=== PATIENT | male | born 1940 | race Caucasian/White ===

== ENCOUNTER 2021-07-01 07:21 | Outpatient (CLI) | payer MEDICARE ==
[2021-07-01 08:05] LABS: Hemoglobin 11.8 g/dL (13.5-17.5); Mean Corpuscular HGB CONC 32.6 g/dL (32.0-36.0); Mean Corpuscular Hemoglobin 33.9 pg (27.0-33.0); Mean Platelet Volume 10.9 fl (7.4-10.4); Platelet Count 124 10x3/uL (150-450); RBC Distribution Width 15.5 % (11.5-14.5); Red Blood Cell (RBC) Count 3.48 10x6/uL (4.32-5.72); White Blood Cell (WBC) Count 4.5 10x3/uL (3.5-10.5)
[2021-07-01 08:23] LABS: ALT (SGPT) 25 U/L (8-55); AST (SGOT) 25 U/L (5-34); Albumin 3.9 g/dL (3.4-4.8); Alkaline Phosphatase 238 U/L (40-110); Anion Gap 14 mmol/L (10-20); BUN (Urea Nitrogen) 22 mg/dL (8.4-25.7); Calc. Creatinine Clearance 0 mL/min (70-130); Carbon Dioxide 26 mmol/L (23-31); Chloride 107 mmol/L (98-107); Globulin 2.8 g/dL (2.4-3.5); Glucose 93 mg/dL (83-110); Magnesium 2.2 mg/dL (1.6-2.6); Potassium 4.6 mmol/L (3.5-5.1); Protein, Total 6.7 g/dL (5.8-8.1); Sodium 142 mmol/L (136-145)
[2021-07-01 08:24] LABS: INR-International Normal Ratio 1.1; PTT 30.3 sec (22.0-33.0); Prothrombin Time 11.8 sec (9.5-12.1)
[2021-07-01 16:44] LABS: SARS-CoV-2 PCR by NAA Not Detected (NotDetected)
== END 2021-07-01 07:22 | disposition home or self-care (01) ==
LOC: CSHLAB 07:21
PROVIDERS: ATTEND Specialist
DX: Z01.812 Encounter for preprocedural laboratory examination (principal); Z20.822 Contact with and (suspected) exposure to COVID-19; I48.91 Unspecified atrial fibrillation
CPT/HCPCS: 80053; 83735; 85027; 85610; 85730; U0003; U0005

== ENCOUNTER → 2021-07-04 | Day surgery (SDC) | payer MEDICARE ==
[~2021-07-04] MED LIST: PROPOFOL 20 ML ONE
== END ==
LOC: CSHSDC 09:37
PROVIDERS: ATTEND Specialist
DX: I48.19 Other persistent atrial fibrillation (principal); I10 Essential (primary) hypertension; E78.2 Mixed hyperlipidemia; I25.118 Atherosclerotic heart disease of native coronary artery with other forms of angina pectoris; I65.23 Occlusion and stenosis of bilateral carotid arteries; Z79.82 Long term (current) use of aspirin; Z79.01 Long term (current) use of anticoagulants; Z95.1 Presence of aortocoronary bypass graft; Z20.822 Contact with and (suspected) exposure to COVID-19
CPT/HCPCS: 92960; 93005; 93010; J2704

== ENCOUNTER 2021-07-25 09:09 | Outpatient (CLI) | payer MEDICARE | END 2021-07-25 09:10 | disposition home or self-care (01) | LOC: CSHLAB 09:09 | PROVIDERS: ATTEND Specialist | DX: Z20.822 Contact with and (suspected) exposure to COVID-19 (principal) | CPT/HCPCS: U0003; U0005 ==

== ENCOUNTER 2021-07-26 14:04 | Observation (INO) | payer MEDICARE ==
[2021-07-26] MEDS ORDERED: Senokot S 8.6-50 MG TAB PO PRN (15:22)
[2021-07-26] MEDS ORDERED: Ondansetron PF 4 MG/2 ML Vial IVP PRN (15:22)
[2021-07-26] MEDS ORDERED: HYDROcodone/Acetaminophen 7.5/325 mg Tablet PO PRN (15:22)
[2021-07-26] MEDS ORDERED: Ondansetron ODT 4 MG TAB PO PRN (15:22)
[2021-07-26] MEDS ORDERED: HYDROcodone/Acetaminophen 5/325 mg Tablet PO PRN (15:22)
[2021-07-26] MEDS ORDERED: Guaifenesin DM 100-10/5 ML UDCUP PO PRN (15:22)
[2021-07-26 17:09] VITALS: BMI 22.6
[2021-07-26] MEDS: Acetaminophen 325 MG TAB PO PRN (17:53)
[2021-07-26] MEDS ORDERED: Atorvastatin Calcium 20 MG TAB PO SCH (21:00)
[2021-07-26] MEDS ORDERED: Famotidine 20 MG TAB PO SCH (21:00)
[2021-07-26] MEDS ORDERED: Flecainide 50 MG TAB PO SCH (21:30)
[2021-07-27 04:53] LABS: Hemoglobin 10.3 g/dL (13.5-17.5); Mean Corpuscular HGB CONC 34.8 g/dL (32.0-36.0); Mean Corpuscular Hemoglobin 33.7 pg (27.0-33.0); Mean Corpuscular Volume 96.7 fl (81.2-95.1); Mean Platelet Volume 11.3 fl (7.4-10.4); Platelet Count 77 10x3/uL (150-450); RBC Distribution Width 15.2 % (11.5-14.5); Red Blood Cell (RBC) Count 3.06 10x6/uL (4.32-5.72); White Blood Cell (WBC) Count 3.2 10x3/uL (3.5-10.5)
[2021-07-27 05:01] LABS: Anion Gap 15 mmol/L (10-20); BUN (Urea Nitrogen) 20 mg/dL (8.4-25.7); Calc. Creatinine Clearance 41 mL/min (70-130); Calcium 8.5 mg/dL (7.8-10.44); Carbon Dioxide 22 mmol/L (23-31); Chloride 102 mmol/L (98-107); Glucose 97 mg/dL (83-110); Potassium 4.2 mmol/L (3.5-5.1); Sodium 135 mmol/L (136-145)
[2021-07-27 05:06] LABS: MDiff Complete? YES
[2021-07-27 05:22] LABS: Band 1 % (5-11); Lymphocytes 17 % (21-51); Monocytes 11 % (0-10); Neutrophil 70 % (42-75)
[2021-07-27 05:23] LABS: Platelet Morphology Comment Appears Decreased; RBC Morphology Normal
[2021-07-27] MEDS ORDERED: Levothyroxine Sodium 75 MCG TAB PO SCH (06:00)
[2021-07-27] MEDS ORDERED: Flecainide 50 MG TAB PO SCH (09:00)
[2021-07-27] MEDS ORDERED: Losartan Potassium 50 MG TAB PO SCH (09:00)
[2021-07-27] MEDS: Acetaminophen 325 MG TAB PO PRN ×2 (09:08)
[2021-07-27 11:55] VITALS: BP 118/59; TEMP 99.5
== END 2021-07-27 12:01 | disposition home or self-care (01) ==
LOC: CSHTELE 14:04
PROVIDERS: ADMIT Family Medicine; ATTEND Family Medicine
DX: R55 Syncope and collapse (principal); I25.10 Atherosclerotic heart disease of native coronary artery without angina pectoris; K92.1 Melena; E78.5 Hyperlipidemia, unspecified; I11.9 Hypertensive heart disease without heart failure; E03.9 Hypothyroidism, unspecified; I48.19 Other persistent atrial fibrillation; Z79.01 Long term (current) use of anticoagulants; Z79.890 Hormone replacement therapy; Z79.899 Other long term (current) drug therapy; Z95.1 Presence of aortocoronary bypass graft; Z95.5 Presence of coronary angioplasty implant and graft; W19.XXXA Unspecified fall, initial encounter
CPT/HCPCS: 36415; 80048; 85025; G0378

== ENCOUNTER 2021-07-29 09:05 | Day surgery (SDC) | payer MEDICARE ==
[2021-07-29] MEDS ORDERED: PROPOFOL 200 MG/20 ML VIAL ONE (12:00)
[2021-07-29 16:01] VITALS: TEMP 98.4
== END 2021-07-29 14:17 | disposition home or self-care (01) ==
LOC: CSHSDC 09:05
PROVIDERS: ATTEND Specialist
PROC: 5A2204Z Restoration of Cardiac Rhythm, Single (ICD-10-PCS; principal; 2021-07-29)
DX: I48.19 Other persistent atrial fibrillation (principal); I25.118 Atherosclerotic heart disease of native coronary artery with other forms of angina pectoris; I65.23 Occlusion and stenosis of bilateral carotid arteries; E78.2 Mixed hyperlipidemia; I10 Essential (primary) hypertension; Z79.01 Long term (current) use of anticoagulants; Z79.890 Hormone replacement therapy; Z79.899 Other long term (current) drug therapy; Z95.1 Presence of aortocoronary bypass graft
CPT/HCPCS: 92960; 93005; 93010; J2704

== ENCOUNTER 2022-03-09 10:06 | Outpatient (CLI) | payer MEDICARE | END 2022-03-09 10:07 | disposition home or self-care (01) | LOC: CSHCP 10:06 | PROVIDERS: ATTEND Internal Medicine Pulmonary Disease | DX: J84.9 Interstitial pulmonary disease, unspecified (principal); R06.02 Shortness of breath | CPT/HCPCS: 94060; 94726; 94729; 94760 ==

== ENCOUNTER 2023-04-05 11:48 | Outpatient (CLI) | payer MEDICARE | END 2023-04-05 11:49 | disposition home or self-care (01) | LOC: CSHCT 11:48 | PROVIDERS: ATTEND Family Medicine | DX: R10.9 Unspecified abdominal pain (principal); K74.60 Unspecified cirrhosis of liver; K76.6 Portal hypertension; R18.8 Other ascites; K63.9 Disease of intestine, unspecified; J98.11 Atelectasis; J90 Pleural effusion, not elsewhere classified; J98.4 Other disorders of lung | CPT/HCPCS: 74177 ==

== ENCOUNTER 2023-04-12 15:22 | Observation (INO) | payer MEDICARE ==
[2023-04-12 15:48] VITALS: BMI 21.5
[2023-04-12] MEDS ORDERED: Ondansetron PF 4 MG/2 ML Vial IVP PRN (16:28)
[2023-04-12] MEDS ORDERED: HYDROcodone/Acetaminophen 5/325 mg Tablet PO PRN (16:28)
[2023-04-12] MEDS ORDERED: Guaifenesin DM 100-10/5 ML UDCUP PO PRN (16:28)
[2023-04-12] MEDS ORDERED: Senokot S 8.6-50 MG TAB PO PRN (16:28)
[2023-04-12] MEDS ORDERED: Nitroglycerin 0.4 MG TAB (25 Tab Bottle) SL PRN (18:53)
[2023-04-12 20:11] LABS: Troponin I 0.078 ng/mL (< 0.028)
[2023-04-12] MEDS: Flecainide 50 MG TAB PO SCH (20:25)
[2023-04-12 22:36] LABS: Troponin I 0.079 ng/mL (< 0.028)
[2023-04-13 03:47] LABS: #Monocytes 0.3 10x3/uL (0.0-1.1); #Neutrophils 1.7 10x3/uL (1.5-8.4); %Basophils 0.7 % (0.0-2.0); %Eosinophils 1.4 % (0.0-6.0); %Lymphocytes 28.8 % (18.0-47.0); %Monocytes 9.8 % (0.0-10.0); %Neutrophils 58.9 % (40.0-75.0); Hematocrit 25.2 % (38.8-50.0); Mean Corpuscular HGB CONC 31.7 g/dL (32.0-36.0); Mean Corpuscular Hemoglobin 29.6 pg (27.0-33.0); Mean Corpuscular Volume 93.3 fl (81.2-95.1); Mean Platelet Volume 10.5 fl (7.4-10.4); Platelet Count 147 10x3/uL (150-450); RBC Distribution Width 17.2 % (11.5-14.5); White Blood Cell (WBC) Count 2.9 10x3/uL (3.5-10.5)
[2023-04-13 04:18] LABS: ALT (SGPT) 9 U/L (8-55); AST (SGOT) 17 U/L (5-34); Albumin 2.8 g/dL (3.4-4.8); Alkaline Phosphatase 96 U/L (40-110); Anion Gap 10 mmol/L (10-20); BUN (Urea Nitrogen) 14 mg/dL (8.4-25.7); Bilirubin, Total 0.4 mg/dL (0.2-1.2); Calc. Creatinine Clearance 40 mL/min (70-130); Cardiac Risk 3.5 (Less than 4.5); Chloride 108 mmol/L (98-107); Cholesterol 126 mg/dl (< 200 Desired); Estimated GFR 52; Globulin 2.6 g/dL (2.4-3.5); Glucose 91 mg/dL (83-110); HDL Cholesterol 36 mg/dL (>60 Neg Risk); LDL Cholesterol, Calculated 80 mg/dL; Potassium 3.9 mmol/L (3.5-5.1); Protein, Total 5.4 g/dL (5.8-8.1); Sodium 139 mmol/L (136-145); Triglycerides 49 mg/dL (Less than 150)
[2023-04-13 04:27] LABS: Carbon Dioxide 25 mmol/L (23-31)
[2023-04-13] MEDS: Levothyroxine Sodium 75 MCG TAB PO SCH (06:16)
[2023-04-13] MEDS: Empagliflozin 25 MG TAB PO SCH (10:19)
[2023-04-13] MEDS ORDERED: Lidocaine 1% PF 5 ML VIAL ONE (11:06)
[2023-04-13] MEDS ORDERED: Sodium Bicarbonate 2.5 MEQ/5 ML SDV ONE (11:07)
[2023-04-13 14:06] LABS: HBCM Index 0.06 S/CO (0-0.79); Hep A IgM AB Non-Reactive (NonReactive); Hep A IgM S/CO 0.28 S/CO (0-0.79); Hep C IgG Ab Non-Reactive S/CO (NonReactive); Hepatitis B Core IgM Abs Non-Reactive S/CO (NonReactive)
[2023-04-13 14:12] LABS: BF Color Yellow; Body Fluid Source Ascites Body Fluid; Clarity Clear (Clear); Tube # EDTA
[2023-04-13 14:18] LABS: BF Segmented Neutrophils 6 %; Cell Count Non Hematic 55 %; Lymphocytes 39 %
[2023-04-13 14:39] VITALS: BP 138/71; TEMP 97.5
[2023-04-13 15:27] LABS: HBSAg Index 0.26 S/CO (0-0.99); Hep B Surf Ag Non-Reactive S/CO (NonReactive)
[2023-04-13 16:59] LABS: Fluid, Protein 2.1 g/dL (Not Available)
== END 2023-04-13 17:45 | disposition home or self-care (01) ==
LOC: CSHTELE 15:22
PROVIDERS: ADMIT Hospitalist; ATTEND Hospitalist
PROC: 0W9G3ZZ Drainage of Peritoneal Cavity, Percutaneous Approach (ICD-10-PCS; principal; 2023-04-12)
DX: K74.60 Unspecified cirrhosis of liver (principal); R18.8 Other ascites; I25.10 Atherosclerotic heart disease of native coronary artery without angina pectoris; I13.0 Hypertensive heart and chronic kidney disease with heart failure and stage 1 through stage 4 chronic kidney disease, or unspecified chronic kidney disease; I50.32 Chronic diastolic (congestive) heart failure; N18.30 Chronic kidney disease, stage 3 unspecified; I48.0 Paroxysmal atrial fibrillation; D63.8 Anemia in other chronic diseases classified elsewhere; E79.89 Other specified disorders of purine and pyrimidine metabolism; E78.5 Hyperlipidemia, unspecified; N40.0 Benign prostatic hyperplasia without lower urinary tract symptoms; K21.9 Gastro-esophageal reflux disease without esophagitis; K57.90 Diverticulosis of intestine, part unspecified, without perforation or abscess without bleeding; E78.2 Mixed hyperlipidemia; J84.10 Pulmonary fibrosis, unspecified; I65.23 Occlusion and stenosis of bilateral carotid arteries; G47.30 Sleep apnea, unspecified; E03.9 Hypothyroidism, unspecified; Z79.890 Hormone replacement therapy; Z79.899 Other long term (current) drug therapy; Z79.01 Long term (current) use of anticoagulants; R10.12 Left upper quadrant pain; R79.89 Other specified abnormal findings of blood chemistry; I10 Essential (primary) hypertension
CPT/HCPCS: 49083; 74177; 80053 ×2; 80061; 80074; 81001; 82945; 83690; 84157; 84484 ×2; 85025 ×2; 85379; 85610; 85730; 87070; 87205; 89051; 93005 ×2; 96374; 99285; G0378 ×2; 36415; 82274; 88112; 88305; 93010; J1650; J2270

== ENCOUNTER 2023-08-04 08:08 | Day surgery (SDC) | payer MEDICARE ==
[2023-08-04 08:48] VITALS: BP 107/55; TEMP 97.4
[2023-08-04] MEDS ORDERED: Sodium Bicarbonate 2.5 MEQ/5 ML SDV ONE (09:00)
[2023-08-04] MEDS ORDERED: Lidocaine 1% (PF) 30 ML VIAL ONE (09:00)
[2023-08-04 09:02] LABS: #Basophils 0.01 10x3/uL (0.0-0.2); #Eosinphils 0.04 10x3/uL (0.0-0.5); #Monocytes 0.17 10x3/uL (0.0-1.1); #Neutrophils 1.78 10x3/uL (1.5-8.4); %Basophils 0.4 % (0.0-2.0); %Eosinophils 1.5 % (0.0-6.0); %Lymphocytes 24.2 % (18.0-47.0); %Monocytes 6.4 % (0.0-10.0); %Neutrophils 67.1 % (40.0-75.0); Hemoglobin 8.2 g/dL (13.5-17.5); Mean Corpuscular HGB CONC 31.5 g/dL (32.0-36.0); Mean Corpuscular Hemoglobin 29.5 pg (27.0-33.0); Mean Corpuscular Volume 93.5 fL (81.2-95.1); Mean Platelet Volume 10.9 fL (7.4-10.4); Platelet Count 131 10x3/uL (150-450); Red Blood Cell (RBC) Count 2.78 10x6/uL (4.32-5.72); White Blood Cell (WBC) Count 2.7 10x3/uL (3.5-10.5)
[2023-08-04 09:09] LABS: INR-International Normal Ratio 1.1; PTT 29.3 sec (22.0-33.0); Prothrombin Time 12.1 sec (9.5-12.1)
[2023-08-04] MEDS ORDERED: Lidocaine 1% PF 5 ML VIAL ONE (09:13)
== END 2023-08-04 09:58 | disposition home or self-care (01) ==
LOC: CSHRAD 08:08
PROVIDERS: ATTEND Internal Medicine Gastroenterology
PROC: 0W9G3ZZ Drainage of Peritoneal Cavity, Percutaneous Approach (ICD-10-PCS; principal; 2023-08-04)
DX: R18.8 Other ascites (principal)
CPT/HCPCS: 49083; 85025; 85610; 85730; J2001

== ENCOUNTER 2023-08-06 10:27 | Outpatient (CLI) | payer MEDICARE | END 2023-08-06 10:28 | disposition home or self-care (01) | LOC: CSHULT 10:27 | PROVIDERS: ATTEND Internal Medicine Gastroenterology | DX: K74.60 Unspecified cirrhosis of liver (principal); R18.8 Other ascites; Z90.49 Acquired absence of other specified parts of digestive tract | CPT/HCPCS: 76705 ==

== ENCOUNTER 2023-08-09 11:54 | Observation (INO) | payer MEDICARE ==
[2023-08-09 13:12] LABS: #Basophils 0.01 10x3/uL (0.0-0.2); #Eosinphils 0.01 10x3/uL (0.0-0.5); #Monocytes 0.27 10x3/uL (0.0-1.1); #Neutrophils 2.01 10x3/uL (1.5-8.4); %Basophils 0.3 % (0.0-2.0); %Eosinophils 0.3 % (0.0-6.0); %Lymphocytes 23.8 % (18.0-47.0); %Monocytes 8.9 % (0.0-10.0); %Neutrophils 66.7 % (40.0-75.0); Hematocrit 30.6 % (38.8-50.0); Mean Corpuscular HGB CONC 32.7 g/dL (32.0-36.0); Mean Corpuscular Hemoglobin 29.8 pg (27.0-33.0); Mean Corpuscular Volume 91.1 fL (81.2-95.1); Mean Platelet Volume 10.8 fL (7.4-10.4); Platelet Count 143 10x3/uL (150-450); RBC Distribution Width 18.9 % (11.5-14.5); Red Blood Cell (RBC) Count 3.36 10x6/uL (4.32-5.72)
[2023-08-09 13:30] LABS: ALT (SGPT) 18 U/L (8-55); AST (SGOT) 28 U/L (5-34); Albumin 2.7 g/dL (3.4-4.8); Alkaline Phosphatase 179 U/L (40-110); Anion Gap 13 mmol/L (10-20); BUN (Urea Nitrogen) 37 mg/dL (8.4-25.7); Bilirubin, Total 0.4 mg/dL (0.2-1.2); Calc. Creatinine Clearance 0 mL/min (70-130); Carbon Dioxide 20 mmol/L (23-31); Chloride 109 mmol/L (98-107); Estimated GFR 39; Glucose 110 mg/dL (83-110); Potassium 4.2 mmol/L (3.5-5.1); Protein, Total 5.7 g/dL (5.8-8.1); Sodium 138 mmol/L (136-145)
[2023-08-09] MEDS ORDERED: Furosemide 40 MG (4 mL) VIAL ONE (14:14)
[2023-08-09] MEDS ORDERED: Acetaminophen 650 MG Suppository PR PRN (15:19)
[2023-08-09] MEDS ORDERED: Acetaminophen 325 MG TAB PO PRN (15:19)
[2023-08-09] MEDS ORDERED: Senokot S 8.6-50 MG TAB PO PRN (15:19)
[2023-08-09] MEDS ORDERED: Calcium Carbonate 500 MG ChewTAB PO PRN (15:19)
[2023-08-09] MEDS ORDERED: Promethazine HCl 12.5 MG in Sodium Chloride 0.9% 50 ML IVPB PRN (15:21)
[2023-08-09 16:07] LABS: Troponin I 0.036 ng/mL (< 0.028)
[2023-08-09 16:51] VITALS: BMI 19.8
[2023-08-09] MEDS: Flecainide 50 MG TAB PO SCH (21:20)
[2023-08-10 04:24] LABS: #Basophils 0.02 10x3/uL (0.0-0.2); #Eosinphils 0.04 10x3/uL (0.0-0.5); #Monocytes 0.24 10x3/uL (0.0-1.1); #Neutrophils 1.73 10x3/uL (1.5-8.4); %Basophils 0.7 % (0.0-2.0); %Eosinophils 1.4 % (0.0-6.0); %Lymphocytes 30.8 % (18.0-47.0); %Monocytes 8.1 % (0.0-10.0); %Neutrophils 58.7 % (40.0-75.0); Hematocrit 28.6 % (38.8-50.0); Hemoglobin 9.3 g/dL (13.5-17.5); Mean Corpuscular HGB CONC 32.5 g/dL (32.0-36.0); Mean Corpuscular Hemoglobin 29.5 pg (27.0-33.0); Mean Corpuscular Volume 90.8 fL (81.2-95.1); Platelet Count 130 10x3/uL (150-450); RBC Distribution Width 19.1 % (11.5-14.5); Red Blood Cell (RBC) Count 3.15 10x6/uL (4.32-5.72)
[2023-08-10 04:33] LABS: ALT (SGPT) 16 U/L (8-55); AST (SGOT) 25 U/L (5-34); Albumin 2.7 g/dL (3.4-4.8); Alkaline Phosphatase 170 U/L (40-110); Anion Gap 14 mmol/L (10-20); BUN (Urea Nitrogen) 40 mg/dL (8.4-25.7); Bilirubin, Total 0.3 mg/dL (0.2-1.2); Calc. Creatinine Clearance 28 mL/min (70-130); Carbon Dioxide 20 mmol/L (23-31); Chloride 110 mmol/L (98-107); Estimated GFR 38; Glucose 96 mg/dL (83-110); Potassium 3.6 mmol/L (3.5-5.1); Protein, Total 5.7 g/dL (5.8-8.1); Sodium 140 mmol/L (136-145)
[2023-08-10] MEDS ORDERED: Electrolyte Replacement Protocol 1 EACH FS PRN (05:00)
[2023-08-10] MEDS: Potassium Chloride 20 MEQ TAB PO SCH (05:24)
[2023-08-10] MEDS: Levothyroxine Sodium 75 MCG TAB PO SCH (06:15)
[2023-08-10 06:45] LABS: Bilirubin Neg (Negative); Blood, Urine Negative (Negative); Clarity Clear (Clear); Glucose, Urine (Dipstick) 250 mg/dL (Negative); Ketone, Urine Negative (Negative); Leukocyte Negative (Negative); Nitrite Negative (Negative); Protein, Urine (Dipstick) 30 mg/dl (Neg-Trace); Specific Gravity, Urine 1.015 (1.005-1.030); Urobilinogen Normal mg/dL (Less than 2)
[2023-08-10 06:59] LABS: Bacteria/HPF 1+ HPF (None Seen); CAUTI Indications for Culture Dysuria,urgency,freq; RBC/HPF 0-3 HPF (0-3); Squamous Epithelial 0-3 HPF (0-3); WBC/HPF 0-3 HPF (0-3)
[2023-08-10 07:02] LABS: Urine Culture Reflex No No
[2023-08-10] MEDS: Empagliflozin 25 MG TAB PO SCH (08:33)
[2023-08-10] MEDS: Pantoprazole DR 40 MG TAB PO SCH (08:33)
[2023-08-10] MEDS: Furosemide 20 MG (2 mL) VIAL SLOW IVP SCH (08:33)
[2023-08-10] MEDS: Magnesium 2 GM/50 ML(in water) 2 GM in Premix 1 BAG IVPB SCH (08:34)
[2023-08-10] MEDS ORDERED: Non-Formulary Medication 1 EACH (Tadalafil [Tadalafil] 5 MG Tablet) PO SCH (09:00)
[2023-08-10 11:47] LABS: Iron 26 ug/dL (65-175); Iron Binding Capacity, Total 255 mcg/dL (261-462)
[2023-08-10] MEDS: Albumin 25% 25 GM (100 mL) BOT IVPB SCH (12:13)
[2023-08-10] MEDS ORDERED: Iron Sucrose Complex 100 MG in Sodium Chloride 0.9% 100 ML IVPB SCH (12:15)
[2023-08-10 13:04] LABS: Ferritin 62.11 ng/mL (22-322); Thyroid Stimulating Hormone 3.0008 uIU/mL (0.35-4.94)
[2023-08-10] MEDS: Sodium Ferric Gluconate 125 MG in Sodium Chloride 0.9% 100 ML IVPB SCH (14:51)
[2023-08-10] MEDS: Apixaban 2.5 MG TAB PO SCH (20:54)
[2023-08-11 05:16] LABS: #Basophils 0.01 10x3/uL (0.0-0.2); #Eosinphils 0.03 10x3/uL (0.0-0.5); #Monocytes 0.15 10x3/uL (0.0-1.1); #Neutrophils 1.08 10x3/uL (1.5-8.4); %Basophils 0.5 % (0.0-2.0); %Eosinophils 1.4 % (0.0-6.0); %Lymphocytes 39.9 % (18.0-47.0); %Neutrophils 50.7 % (40.0-75.0); Hematocrit 24.4 % (38.8-50.0); Hemoglobin 7.9 g/dL (13.5-17.5); Mean Corpuscular HGB CONC 32.4 g/dL (32.0-36.0); Mean Corpuscular Hemoglobin 29.5 pg (27.0-33.0); Mean Platelet Volume 11.1 fL (7.4-10.4); Platelet Count 99 10x3/uL (150-450); RBC Distribution Width 19.3 % (11.5-14.5); Red Blood Cell (RBC) Count 2.68 10x6/uL (4.32-5.72); White Blood Cell (WBC) Count 2.1 10x3/uL (3.5-10.5)
[2023-08-11 05:21] LABS: ALT (SGPT) 10 U/L (8-55); AST (SGOT) 22 U/L (5-34); Albumin 3.3 g/dL (3.4-4.8); Alkaline Phosphatase 131 U/L (40-110); Anion Gap 10 mmol/L (10-20); BUN (Urea Nitrogen) 33 mg/dL (8.4-25.7); Bilirubin, Total 0.3 mg/dL (0.2-1.2); Calc. Creatinine Clearance 32 mL/min (70-130); Calcium 7.8 mg/dL (7.8-10.44); Carbon Dioxide 21 mmol/L (23-31); Chloride 110 mmol/L (98-107); Estimated GFR 44; Globulin 2.3 g/dL (2.4-3.5); Glucose 88 mg/dL (83-110); Magnesium 2.3 mg/dL (1.6-2.6); Potassium 3.6 mmol/L (3.5-5.1); Protein, Total 5.6 g/dL (5.8-8.1); Sodium 137 mmol/L (136-145)
[2023-08-11 05:29] LABS: Anisocytosis SLIGHT = 6-15 cells (100X) (0-5/hpf)
[2023-08-11 05:30] LABS: Elliptocytes MODERATE= 6-15 cells (100X) (0-1/hpf); Platelet Adequacy Comment Appears Decreased
[2023-08-11] MEDS ORDERED: Furosemide 20 MG (2 mL) VIAL SLOW IVP SCH ×2 (09:00→14:00)
[2023-08-11] MEDS: Albumin 25% 25 GM (100 mL) BOT IVPB SCH (12:36)
[2023-08-11] MEDS: Potassium Chloride 20 MEQ TAB PO SCH (13:12)
[2023-08-11] MEDS: Furosemide 20 MG (2 mL) VIAL SLOW IVP SCH (15:17)
[2023-08-11 18:10] LABS: Hematocrit 29.3 % (38.8-50.0); Hemoglobin 9.8 g/dL (13.5-17.5)
[2023-08-12 03:50] LABS: #Basophils 0.01 10x3/uL (0.0-0.2); #Eosinphils 0.03 10x3/uL (0.0-0.5); #Monocytes 0.18 10x3/uL (0.0-1.1); %Basophils 0.4 % (0.0-2.0); %Eosinophils 1.2 % (0.0-6.0); %Lymphocytes 41.6 % (18.0-47.0); %Monocytes 7.4 % (0.0-10.0); %Neutrophils 49.4 % (40.0-75.0); Hematocrit 25.9 % (38.8-50.0); Hemoglobin 8.5 g/dL (13.5-17.5); Mean Corpuscular HGB CONC 32.8 g/dL (32.0-36.0); Mean Corpuscular Hemoglobin 29.2 pg (27.0-33.0); Mean Platelet Volume 10.8 fL (7.4-10.4); Platelet Count 89 10x3/uL (150-450); RBC Distribution Width 18.9 % (11.5-14.5); Red Blood Cell (RBC) Count 2.91 10x6/uL (4.32-5.72); White Blood Cell (WBC) Count 2.4 10x3/uL (3.5-10.5)
[2023-08-12 04:06] LABS: ALT (SGPT) 10 U/L (8-55); AST (SGOT) 20 U/L (5-34); Albumin 3.8 g/dL (3.4-4.8); Alkaline Phosphatase 117 U/L (40-110); Anion Gap 13 mmol/L (10-20); BUN (Urea Nitrogen) 35 mg/dL (8.4-25.7); Bilirubin, Total 0.6 mg/dL (0.2-1.2); Calc. Creatinine Clearance 30 mL/min (70-130); Carbon Dioxide 19 mmol/L (23-31); Chloride 112 mmol/L (98-107); Estimated GFR 42; Globulin 2.1 g/dL (2.4-3.5); Glucose 96 mg/dL (83-110); Magnesium 2.3 mg/dL (1.6-2.6); Potassium 4.1 mmol/L (3.5-5.1); Protein, Total 5.9 g/dL (5.8-8.1); Sodium 140 mmol/L (136-145)
[2023-08-12] MEDS ORDERED: Potassium Chloride 20 MEQ TAB PO SCH (08:00)
[2023-08-12 08:11] VITALS: TEMP 98.1
[2023-08-12 09:34] VITALS: BP 117/46
[2023-08-12] MEDS: Furosemide 20 MG TAB PO SCH (10:07)
== END 2023-08-12 11:24 | disposition home or self-care (01) ==
LOC: CSHERS 11:54 → CSHTELE 16:36
PROVIDERS: ADMIT Internal Medicine; ATTEND Internal Medicine
PROC: B246ZZZ Ultrasonography of Right and Left Heart (ICD-10-PCS; principal; 2023-08-09)
DX: I48.91 Unspecified atrial fibrillation (principal); R00.1 Bradycardia, unspecified; J84.10 Pulmonary fibrosis, unspecified; K74.60 Unspecified cirrhosis of liver; I25.10 Atherosclerotic heart disease of native coronary artery without angina pectoris; I13.0 Hypertensive heart and chronic kidney disease with heart failure and stage 1 through stage 4 chronic kidney disease, or unspecified chronic kidney disease; I50.33 Acute on chronic diastolic (congestive) heart failure; N18.30 Chronic kidney disease, stage 3 unspecified; D63.1 Anemia in chronic kidney disease; I27.20 Pulmonary hypertension, unspecified; D50.9 Iron deficiency anemia, unspecified; E03.9 Hypothyroidism, unspecified; E78.2 Mixed hyperlipidemia; I45.2 Bifascicular block; R18.8 Other ascites; I25.118 Atherosclerotic heart disease of native coronary artery with other forms of angina pectoris; I65.23 Occlusion and stenosis of bilateral carotid arteries; Z79.02 Long term (current) use of antithrombotics/antiplatelets; Z79.899 Other long term (current) drug therapy; Z90.49 Acquired absence of other specified parts of digestive tract; Z98.890 Other specified postprocedural states; Z98.41 Cataract extraction status, right eye; Z98.42 Cataract extraction status, left eye; Z95.5 Presence of coronary angioplasty implant and graft; Z99.81 Dependence on supplemental oxygen; Z79.890 Hormone replacement therapy
CPT/HCPCS: 36430; 71045; 76705; 80053 ×3; 81001; 82140; 82728; 83540; 83550; 83735 ×3; 83880 ×2; 84484 ×2; 85014; 85018; 85025 ×3; 86850; 86900; 86901; 86920; 93005 ×4; 93306; 94760 ×3; 96374; 96375; 96376 ×3; 97116 ×2; 97530 ×3; 97535 ×2; 99284; G0378 ×5; J1940 ×2; J2916; J3475; J3490; P9016; P9047 ×3; 36415; 82274; 84443; 93010

== ENCOUNTER → 2023-11-12 | Day surgery (SDC) | payer MEDICARE ==
[~2023-11-12] MED LIST changes: +FLU (Fluad Triv) TS24-25 (65UP)/MF59C/PF 45 MCG/0.5 ML Syringe IM ONE; -PROPOFOL 20 ML ONE
[2023-11-12 10:28] LABS: #Basophils 0.01 10x3/uL (0.0-0.2); #Eosinphils 0.02 10x3/uL (0.0-0.5); #Monocytes 0.28 10x3/uL (0.0-1.1); #Neutrophils 2.26 10x3/uL (1.5-8.4); %Basophils 0.3 % (0.0-2.0); %Eosinophils 0.6 % (0.0-6.0); %Lymphocytes 23.2 % (18.0-47.0); %Monocytes 8.3 % (0.0-10.0); %Neutrophils 67.3 % (40.0-75.0); Hematocrit 31.4 % (38.8-50.0); Mean Corpuscular HGB CONC 31.8 g/dL (32.0-36.0); Mean Corpuscular Hemoglobin 32.6 pg (27.0-33.0); Mean Corpuscular Volume 102.3 fL (81.2-95.1); Mean Platelet Volume 10.3 fL (7.4-10.4); Platelet Count 94 10x3/uL (150-450); RBC Distribution Width 15.9 % (11.5-14.5); Red Blood Cell (RBC) Count 3.07 10x6/uL (4.32-5.72); White Blood Cell (WBC) Count 3.4 10x3/uL (3.5-10.5)
[2023-11-12 10:49] VITALS: BP 150/72; TEMP 99.1
[2023-11-12 11:21] LABS: INR-International Normal Ratio 1.2; Prothrombin Time 13.3 sec (9.5-12.1)
[2023-11-12 11:23] LABS: ALT (SGPT) 28 U/L (8-55); AST (SGOT) 33 U/L (5-34); Albumin 3.2 g/dL (3.4-4.8); Alkaline Phosphatase 212 U/L (40-110); Anion Gap 12 mmol/L (10-20); BUN (Urea Nitrogen) 40 mg/dL (8.4-25.7); Calc. Creatinine Clearance 34 mL/min (70-130); Calcium 8.8 mg/dL (7.8-10.44); Carbon Dioxide 23 mmol/L (23-31); Chloride 111 mmol/L (98-107); Estimated GFR 44; Globulin 3.3 g/dL (2.4-3.5); Glucose 85 mg/dL (83-110); Magnesium 2.1 mg/dL (1.6-2.6); Protein, Total 6.5 g/dL (5.8-8.1); Sodium 142 mmol/L (136-145)
== END ==
LOC: CSHSDC 09:05
PROVIDERS: ATTEND Specialist
PROC: 5A2204Z Restoration of Cardiac Rhythm, Single (ICD-10-PCS; principal; 2023-11-12)
DX: I48.91 Unspecified atrial fibrillation (principal)
CPT/HCPCS: 80053; 83735; 85025; 85610; 93005; 93010